=== PATIENT | female | born 1955 | race African-American/Black ===

== ENCOUNTER → 2021-04-29 | Outpatient (CLI) | payer MEDICARE | LOC: COL.RAD 09:17 | DX: D35.1 Benign neoplasm of parathyroid gland (principal); M81.0 Age-related osteoporosis without current pathological fracture | CPT/HCPCS: A9500 ==

== ENCOUNTER 2021-08-23 09:58 | Day surgery (SDC) | payer MEDICARE ==
[2021-08-23] VITALS (11 sets, daily range): BP systolic 126–164; BP diastolic 64–92; PULSE 75–90; TEMP 97.7–98.3
[~2021-08-23] VITALS: Ht 157.5 cm; Wt 79.0 kg
--- NOTE | 2021-08-23 10:27 | NUR ---
PT AMBULATED TO BAY 3 ACCOMPANIED BY DAUGHTER. V OBTAINED. CONSENT SIGNED. 20G IV INFUSING NS IN L HAND. ASSESSMENT COMPLETED. ORIENTED TO ROOM AND CALL LIGHT. VERBALIZED UNDERSTANDING. CALL LIGHT WITHIN REACH. PT DENIES ANY NEEDS AT THIS TIME.
[2021-08-23 11:44] LABS: BASO % 0.5 % (0.0-2.0); EOS # 0.2 K/mm3 (0.0-0.7); EOS % 3.3 % (0.0-4.0); GRAN # 4.3 K/mm3 (1.4-6.5); GRAN % 58.4 % (42.2-75.2); HEMATOCRIT 39.7 % (37.0-47.0); HEMOGLOBIN 12.9 g/dl (12.5-16.0); LYMPH # 1.8 K/mm3 (1.2-3.4); LYMPH % 24.7 % (20.0-51.0); MEAN CELL VOLUME 81 fl (80.0-100.0); MEAN CORPUSCULAR HEMOGLOBIN 26 pg (27-31); MEAN CORPUSCULAR HGB CONC 33 g/dl (33.0-37.0); MEAN PLATELET VOLUME 9.3 fl (7.4-10.4); MONO # 0.9 K/mm3 (0.1-0.6); MONO % 12.7 % (1.7-9.3); PLATELET COUNT 240 K/mm3 (130-400); RED BLOOD COUNT 4.93 M/mm3 (4.10-5.30); REDCELL DISTRIBUTION WIDTH-CV 17.6 % (11.5-14.5)
[2021-08-23] MEDS ORDERED: COZAAR 50MG50 MG/TAB PO (11:55)
[2021-08-23] MEDS ORDERED: NORVASC 10MG10 MG PO (11:56)
[2021-08-23] MEDS ORDERED: GLUCOPHAGE XR500 M1 PO (11:56)
[2021-08-23] MEDS ORDERED: D3-5050000 IU PO (11:57)
[2021-08-23 12:05] LABS: ALBUMIN 4.2 gm/dL (3.4-4.8); BILIRUBIN,TOTAL 0.4 mg/dL (0.2-1.2); CALCIUM 11.7 mg/dL (8.4-10.2); CREATININE, serum 1.45 mg/dL (0.57-1.11); POTASSIUM 4.4 mmol/L (3.5-4.5); TOTAL PROTEIN 8.6 gm/dL (6.2-8.1)
--- NOTE | 2021-08-23 16:00 | NUR ---
CALCIUM RESULTS HAVE BEEN REPORTED TO DR. CUMMINGS. NOW NEW ORDERS.
--- NOTE | 2021-08-23 17:00 | NUR ---
PT ARRIVES FROM PACU @ 1500. PT SLEEPS ON ARRIVAL BUT IS EASILY AWAKENED BY NAME. IVF INFUSING. GAUZE DRESSING IN PLACE TO INCISION ON PT'S NECK. ICE PACK IN PLACE OVER DRESSING. PT'S DAUGHTER ARRIVES SHORTLY AFTER. PT IS ASSISTED TO BSC X2 WITH SBA OF 1. PT'S URINE IS YELLOW ET CLEAR. PT IS HAVING MINIMAL PAIN @ THIS TIME AFTER TAKING ROXICODONE X1, RATES IT 3/10. PT INSTRUCTED ON HOW TO ORDER DINNER. RESPIRATIONS UNLABORED, VOICE IS CLEAR. PT DENIES ANY DIFFICULTY SWALLOWING.
--- NOTE | 2021-08-24 01:42 | NUR ---
PATIENT IN BED. ALERT AND ORIENTED. HS MEDS PER EMAR. DRESSING TO NECK CHANGED TAPE WAS NO LONGER STICKING. DRESSING IS VASELINE GAUZE, GAUZE, AND METAPORE TAPE. C/O INCREASED PAIN, ALTERNATING SCHEDULED TYLENOL AND PRN LIBRADO. INT L HAND PATENT AND FLUSHES. ICE TO NECK. AMBULATED STANDBY ASSIST TO BATHROOM SEVERAL TIMES.
[2021-08-24 02:54] LABS: CALCIUM 10.5 mg/dL (8.4-10.2); CREATININE, serum 1.68 mg/dL (0.57-1.11); POTASSIUM 4.5 mmol/L (3.5-4.5)
[2021-08-24 04:19] VITALS: BP 143/70; PULSE 76; PULSE 769; TEMP 97.7
--- NOTE | 2021-08-24 07:56 | NUR ---
PT'S BLOOD SUGAR NOT CHECKED R/T PT GETTING ET EATING BREAKFAST BEFORE STAFF WAS ABLE TO ENTER ROOM.
[2021-08-24 08:31] VITALS: BP 142/68; PULSE 85; TEMP 97.4
--- NOTE | 2021-08-24 10:23 | NUR ---
Follow-up visit; Patient thanked [employer] Operator for visiting and offering prayer this morning. Yesica stated prayer and a louie just made her day.
[2021-08-24 11:29] VITALS: BP 135/66; PULSE 77; TEMP 98.5
--- NOTE | 2021-08-24 12:17 | NUR ---
habilitation worker met with patient to complete intake and discuss discharge plan. Patient lives at home alone in [place]. Patient is independent with her ADL's and does not utilize any DME to assist with mobility. She has no home oxygen needs. PCP is Dr. Cardenas and she utilizes [facility] in for perscriptions with no cost difficulty. Patient does not have a DPOA-HC established. Education provided to the patient. She is not legally and has three adult children. A son, and her two daughters Paula [phone] and Nelly ([phone]). Patient is planning on returning home with no concerns. Discharge plan: Home
[2021-08-24] MEDS ORDERED: NORCO 325 MG-51 TAB PO (15:14)
--- NOTE | 2021-08-24 16:06 | NUR ---
PT INDEPENDENT IN ROOM, HAS DRESSED SELF WITH NO PROBLEMS. PT GIVEN DISCHARGE INSTRUCTIONS ET EDUCATION, DENIES QUESTIONS. IV IN LEFT HAND DCED. PT IS BEING DISCHARGED TO HOME, PT'S DAUGHTER IS TRANSPORTING. PT STATES THAT HER DAUGHTER WILL NOT BE HERE FOR ANOTHER HR. PT ENCOURAGED TO CALL FOR FURTHER NEEDS OR QUESTIONS, VERBALIZES UNDERSTANDING.
--- NOTE | 2021-08-26 15:39 | NUR ---
*(LATE ENTRY)* Admitting physicians orders were written stating the patient was being admitted as an Inpatient. Notified by MAUREEN Jules that the patient did not meet inpatient criteria and was being downgraded to OBS. Patient is presented with [facility] form and education provided and all questions answered. Patients signed original placed in the chart and copy provided back to the patient.
== END 2021-08-24 18:40 | disposition home or self-care (01) ==
LOC: SURG 09:58 → SDCO 09:58 → SURG 15:00 → SDCO 08-24 18:40
PROVIDERS: Surgery
DX: E21.0 Primary hyperparathyroidism (principal)
CPT/HCPCS: OP; J0330; J0690; J2405; J2704; J3010; J7030

== ENCOUNTER → 2021-08-30 | Outpatient (CLI) | payer MEDICARE ==
[~2021-08-30] MED LIST: COZAAR 50MG50 MG/TAB PO; D3-5050000 IU PO; GLUCOPHAGE XR500 M1 PO; NORCO 325 MG-51 TAB PO; NORVASC 10MG10 MG PO
== END ==
LOC: COL.LAB 10:09
DX: Z98.890 Other specified postprocedural states (principal)

== ENCOUNTER → 2021-11-08 | Outpatient (CLI) | payer MEDICARE ==
[2021-11-08 14:50] LABS: ALBUMIN 4.2 gm/dL (3.4-4.8); CALCIUM 10.5 mg/dL (8.4-10.2); CREATININE, serum 1.58 mg/dL (0.57-1.11); PHOSPHOROUS 3.3 mg/dL (2.3-4.7); POTASSIUM 4.7 mmol/L (3.5-4.5)
== END ==
LOC: COL.LAB 12:58
DX: N18.31 Chronic kidney disease, stage 3a (principal); I10 Essential (primary) hypertension; E11.9 Type 2 diabetes mellitus without complications